=== PATIENT | female | born 1950 | race African-American/Black ===

== ENCOUNTER 2016-11-21 06:13 | Day surgery (SDC) | payer BC, MEDICARE ==
[2016-11-21] VITALS (10 sets, daily range): BP systolic 108–142; BP diastolic 73–82
[~2016-11-21] VITALS: Ht 162.6 cm; Wt 66.2 kg
[~2016-11-21 06:13] MED LIST: AMLODIPINE-BEN1 EAC4 ORAL; ASPIR 8181 MG ORAL
[2016-11-21] MEDS ORDERED: BSS 500ml btl ONE (07:01)
[2016-11-21] MEDS ORDERED: Lidocaine 1% MPF 10mg/ml 5ml ONE (07:01)
[2016-11-21] MEDS ORDERED: Dexamethasone 4mg/ml vial ONE (07:02)
[2016-11-21] MEDS ORDERED: Povidone-Iodine 5% opth solution ONE (07:02)
[2016-11-21] MEDS ORDERED: EPINEPHrine 1mg/1ml Amp ONE (07:02)
[2016-11-21] MEDS ORDERED: Maxitrol Opth Oint 3.5gm ONE (07:02)
[2016-11-21] MEDS ORDERED: Sodium Hyaluronate 14 mg/ml 0.85ml ONE (07:02)
[2016-11-21] MEDS ORDERED: BSS 15ml BTL ONE (07:02)
[2016-11-21] MEDS ORDERED: Ciprofloxacin Opth Soln ONE (07:03)
[2016-11-21] MEDS ORDERED: Akten 3.5% 1ml Btl ONE (07:03)
[2016-11-21] MEDS ORDERED: Cyclopentolate 1% Opth Sol ONE (07:03)
[2016-11-21] MEDS ORDERED: Phenylephrine 2.5% Op Soln ONE (07:03)
[2016-11-21] MEDS ORDERED: Ketorolac Tromethamine Opth Soln ONE (07:03)
[2016-11-21] MEDS: Ketorolac Tromethamine Opth Soln LEFT EYE SCH ×4 (07:05→07:28)
[2016-11-21] MEDS: Cyclopentolate 1% Opth Sol LEFT EYE SCH ×4 (07:05→07:28)
[2016-11-21] MEDS: Phenylephrine 2.5% Op Soln LEFT EYE SCH ×4 (07:05→07:28)
[2016-11-21] MEDS: Ciprofloxacin Opth Soln LEFT EYE SCH ×4 (07:06→07:28)
[2016-11-21] MEDS: Akten 3.5% 1ml Btl LEFT EYE SCH ×4 (07:06→07:28)
--- NOTE | 2016-11-21 07:23 | Pre-Procedure Note/Attestation ---
Pre-Procedure Note/Attestation Complete Prior to Procedure Planned Procedure: left Procedure Narrative: Cataract extraction with intraocular lens Indications for Procedure Pre-Operative Diagnosis: Cataract Attestation I attest that I discussed the nature of the procedure; its benefits; risks and complications; and alternatives (and the risks and benefits of such alternatives ), prior to the procedure, with the patient (or the patient's legal technology sales representative). I attest that, if there was a reasonable possibility of needing a blood transfusion, the patient (or the patient's legal technology sales representative) was given the [facility] standardized written summary, pursuant to the Ulices Margareth Blood Safety Act ([place] Health and Safety Code # 1645, as amended). I attest that I re-evaluated the patient just prior to the surgery and that there has been no change in the patient's H&P, except as documented below: LUIS SWEET Nov 21, 2016 07:23
[2016-11-21] MEDS ORDERED: Propofol 200mg/20ml IV ONE (08:30)
[2016-11-21] MEDS ORDERED: LR 1000ml ONE (08:30)
[2016-11-21] MEDS ORDERED: Sterile Water Irrig 1000ml IRRIG ONE (08:30)
[2016-11-21] MEDS ORDERED: NS Irrig 1000ml ONE (08:30)
[2016-11-21] MEDS ORDERED: Midazolam 2mg/2ml Inj ONE (08:30)
[2016-11-21] MEDS ORDERED: fentaNYL 100 mcg/2 mL IV ONE (08:30)
--- NOTE | 2016-11-21 08:56 | Anethesia Preoperative Eval ---
Anesthesia Pre-op PMH/ROS General Date of Evaluation: Nov 21, 2016 Time of Evaluation: 08:25 Anesthesiologist: Kalpana ASA Score: ASA 2 Mallampati Score Class I : Soft palate, uvula, fauces, pillars visible Class II: Soft palate, uvula, fauces visible Class III: Soft palate, base of uvula visible Class IV: Only hard plate visible Mallampati Classification: Class II Surgeon: Shoshana Diagnosis: L eye cataract Surgical Procedure: L eye cataract extraction Anesthesia History: none Family History: no anesthesia problems Allergies: Coded Allergies: PENICILLINS (Verified Allergy, Intermediate, rash, 11/18/16) Past Medical History Cardiovascular: Reports: HTN - mild, Denies: CAD, VT, valve dz, arrhythmia, other Pulmonary: Reports: COPD, Denies: asthma, ADELITA, other Gastrointestinal/Genitourinary: Reports: GERD, Denies: CRI, ESRD, other Neurologic/Psychiatric: Denies: dementia, CVA, depression/anxiety, TIA, other Endocrine: Denies: DM, hypothyroidism, steroids, other HEENT: Denies: cataract (L), cataract (R), glaucoma, ONONDAGA (L), ONONDAGA (R), other Hematology/Immune: Denies: anemia, DVT, bleeding disorder, other Musculoskeletal/Integumentary: Denies: OA, RA, DJD, DDD, edema, other PMH Narrative: as above PSxH Narrative: Appendectomy, Anesthesia Pre-op Phys. Exam Physician Exam Last Vital Signs Date Time Temp Pulse Resp B/P (MAP) Pulse Ox O2 Delivery O2 Flow Rate FiO2 11/21/16 07:20 98.0 77 19 108/73 97 Room Air Constitutional: NAD Neurologic: CN 2-12 intact Cardiovascular: RRR, no M/R/G Respiratory: CTA Gastrointestinal: S/NT/ND Airway Exam Mallampati Score: Class II MO: full Neck: stiff ROM: limited Teeth: missing Anesthesia Pre-op A/P Labs see chart Studies Pre-op Studies: EKG - NSR Risk Assessment & Plan Assessment: ASA 2 Plan: MAC Status Change Before Surgery: No Pre-Antibiotics Drug: none KRISH PATRICIO M.D. Nov 21, 2016 08:56
[2016-11-21] MEDS ORDERED: LR 1000ml 1,000 ML IVLG SCH (08:57)
[2016-11-21] MEDS ORDERED: fentaNYL 100 mcg/2 mL IV PRN (09:00)
[2016-11-21] MEDS ORDERED: DiphenhydrAMINE 50mg/ml Inj IVP PRN (09:00)
[2016-11-21] MEDS ORDERED: Tetracaine 0.5% Opth Soln ONE (09:07)
--- NOTE | 2016-11-21 09:30 | Operative Note - PDOC ---
Operative Note Operative Note Date of Operation/Procedure: Nov 21, 2016 Chief Complaint: Poor vision, left eye Pre-op Diagnosis: Cataract, left eye Procedure: Cataract extraction with intraocular lens, left eye Post-op Diagnosis: Cataract, left eye Post-op Diagnosis: same as pre-op Surgeon: Shsohana Distribution A Class Lineman: None Additional Surgeons: None Anesthesiologist: Kalpana Anesthesia: MAC Specimen: none Complications: none Condition: stable Estimated Blood Loss: none Drains: none Implant(s) used?: Yes Indications for Procedure Poor vision, left eye Description of Procedure See dictated report LUIS SWEET Nov 21, 2016 09:30
--- NOTE | 2016-11-21 10:42 | Immediate Post-Op Evaluation ---
Immediate Post-Op Evalulation Immediate Post-Op Evalulation Procedure: L eye cataract extraction with IOL Date of Evaluation: Nov 21, 2016 Time of Evaluation: 09:26 IV Fluids: 300 Blood Products: none Estimated Blood Loss: none Urinary Output: none Blood Pressure Systolic: 118 Blood Pressure Diastolic: 62 Pulse Rate: 74 Respiratory Rate: 20 O2 Sat by Pulse Oximetry: 99 Temperature (Fahrenheit): 97.4 Pain Score (1-10): 1 Nausea: No Vomiting: No Complications none Patient Status: awake, patent, none Hydration Status: adequate KRISH PATRICIO M.D. Nov 21, 2016 10:42
--- NOTE | 2016-11-21 11:20 | 48 Hour Post Anesthesia Eval ---
Post Anesthesia Evaluation Procedure: L eye cataract extraction with IOL Date of Evaluation: Nov 21, 2016 Time of Evaluation: 11:18 Blood Pressure Systolic: 142 0: 78 Pulse Rate: 68 Respiratory Rate: 20 Temperature (Fahrenheit): 97.6 O2 Sat by Pulse Oximetry: 98 Airway: patent Nausea: No Vomiting: No Pain Intensity: 2 Hydration Status: adequate Cardiopulmonary Status: stable Mental Status/LOC: patient returned to baseline Follow-up Care/Observations: n/a Post-Anesthesia Complications: none Follow-up care needed: ready to discharge KRISH PATRICIO M.D. Nov 21, 2016 11:19
--- NOTE | 2016-11-21 21:15 | Operative Note - Dictated ---
DATE OF OPERATION: 11/21/2016 SURGEON: Arian Anna M.D. SENIOR CYBER INTELLIGENCE ANALYST: None. ANESTHESIA: MAC. ANESTHESIOLOGIST: Davion Acuna M.D. 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 PRINCIPAL PROCEDURE: Phacoemulsification with primary implantation of posterior chamber intraocular lens, left eye. DESCRIPTION OF PROCEDURE: The patient was evaluated in my office complaining of decreasing vision in her left eye. The visual acuity had diminished to 2200 and she had become extremely myopic with both eyes previously been similar. She was found to have dense nuclear and posterior subcapsular cataract. After discussing the risks, benefits, and alternatives, informed consent was obtained to proceed with cataract extraction in the left eye. The patient was therefore brought to the [facility] outpatient surgery unit where the left pupil was dilated and an intravenous line was started. She was brought into the operating room where ocular anesthesia was obtained with topical drops supplemented with intravenous sedation. The left eye was then prepped and draped in usual fashion for intraocular surgery. A clear cornea temporal incision was made in the anterior chamber filled with lidocaine and viscoelastic. Continuous tear capsulotomy was carefully done. Hydrodissection was utilized to facilitate phacoemulsification. A two-handed phacoemulsification technique was used to fracture a very dense nucleus into quadrants and the segments removed in sequence. Irrigation/aspiration hand piece was then used to remove all residual lens cortex and guyanese the posterior capsule. Viscoelastic was introduced. An intraocular lens from [employer], model ZCB00 with a power of 17.5 diopters was folded into the lens insertion cartridge, injected into the posterior chamber of the eye, and positioned within the capsular bag. The viscoelastic was removed. The wound was adjusted and made watertight without sutures. The intraocular pressure was adjusted to normal. One drop of 10% Betadine, one drop of prednisolone acetate, and one drop of ciprofloxacin were placed on the eye. The eye was covered in an eye shield. This completed the procedure. All sponge and needle counts were correct. The patient was taken to the [facility] in good condition having tolerated the procedure well. Arian Anna M.D. DR: Alicia JOB#: [id number] CC: Eduardo Anderson M.D.; Fax#: [phone] [facility]
== END 2016-11-21 11:15 | disposition home or self-care (01) ==
LOC: SUR 06:13
DX: H25.812 Combined forms of age-related cataract, left eye (principal); I10 Essential (primary) hypertension; J44.9 Chronic obstructive pulmonary disease, unspecified; K21.9 Gastro-esophageal reflux disease without esophagitis; Z90.89 Acquired absence of other organs; Z88.0 Allergy status to penicillin
CPT/HCPCS: 66984; J0171; J1100; J2250; J2704; J3010; J3370; J7120; V2632; 94003; 94150

== ENCOUNTER 2018-11-15 14:01 | Outpatient (CLI) | payer BC, MEDICARE ==
[~2018-11-15] VITALS: Ht 162.6 cm; Wt 68.9 kg
[2018-11-15 15:36] VITALS: BP 109/64
[2018-11-15] MEDS ORDERED: AMLODIPINE BESYL5 MG ORAL (15:36)
[2018-11-15] MEDS ORDERED: AMBIEN5 MG ORAL (15:36)
--- NOTE | 2018-11-15 17:15 | Consultation ---
DATE OF CONSULTATION: 11/15/2018 CHIEF COMPLAINT: Referral for screening colonoscopy. PAST MEDICAL HISTORY: Hypertension. PAST SURGICAL HISTORY: Appendectomy, back surgery, . MEDICATIONS: Please see medication reconciliation list. FAMILY HISTORY: Mother had coronary artery disease. SOCIAL HISTORY: The patient denies any alcohol. She used to smoke, but she quit many years ago. ALLERGIES: To penicillin. REVIEW OF SYSTEMS: A 10-point review of systems was performed and pertinent positives in HPI. PHYSICAL EXAMINATION: GENERAL: female. VITAL SIGNS: Temperature 98, blood pressure , pulse 92, respirations 20. HEENT: Normocephalic and atraumatic. Sclerae anicteric. NECK: Supple. No evidence of obvious lymphadenopathy. CARDIOVASCULAR: Regular rate and rhythm. Plus S1 and S2. No obvious murmur. LUNGS: Clear to auscultation bilaterally. ABDOMEN: Positive bowel sounds. Soft and nontender. No rebound. No guarding. No peritoneal sign. EXTREMITIES: No cyanosis. No clubbing. No edema. ASSESSMENT AND PLAN: The patient is a 68-year-old female was referred to us for screening colonoscopy. The patient was given the prep and instruction for colonoscopy. We will schedule her when authorization is obtained. Franklin Steward M.D. DR: Jorge JOB#: [id number] CC:
== END 2018-11-15 16:01 | disposition home or self-care (01) ==
LOC: PAN 14:01
DX: Z12.11 Encounter for screening for malignant neoplasm of colon (principal); I10 Essential (primary) hypertension; Z90.89 Acquired absence of other organs; Z88.0 Allergy status to penicillin
CPT/HCPCS: 99202

== ENCOUNTER 2019-01-14 07:07 | Day surgery (SDC) | payer BC, MEDICARE ==
[~2019-01-14] VITALS: Ht 163.8 cm; Wt 66.2 kg
[2019-01-14] VITALS (8 sets, daily range): BP systolic 119–144; BP diastolic 70–82
[~2019-01-14 07:07] MED LIST changes: +AMBIEN5 MG ORAL; +AMLODIPINE BESYL5 MG ORAL; +LR 1000ml 1,000 ML IVLG SCH
[2019-01-14] MEDS ORDERED: Lidocaine 1% MPF 10mg/ml 5ml ONE (09:00)
[2019-01-14] MEDS ORDERED: LR 1000ml ONE (09:00)
[2019-01-14] MEDS ORDERED: Propofol 200mg/20ml IV ONE (09:00)
[2019-01-14] MEDS ORDERED: LR 1000ml 1,000 ML IVLG SCH (09:18)
--- NOTE | 2019-01-14 09:25 | Anethesia Preoperative Eval ---
Anesthesia Pre-op PMH/ROS General Date of Evaluation: Jan 14, 2019 Time of Evaluation: 09:21 Anesthesiologist: jd ASA Score: ASA 4 Mallampati Score Class I : Soft palate, uvula, fauces, pillars visible Class II: Soft palate, uvula, fauces visible Class III: Soft palate, base of uvula visible Class IV: Only hard plate visible Mallampati Classification: Class II Surgeon: levi Diagnosis: colon screening Surgical Procedure: colonoscopy Anesthesia History: none Social History: smoking - former smoker Family History: no anesthesia problems Allergies: Coded Allergies: PENICILLINS (Verified Allergy, Intermediate, rash, 11/18/16) Medications: see eMAR Patient NPO?: Yes Past Medical History Cardiovascular: Reports: HTN, other - mvp HEENT: Reports: cataract (L), cataract (R) Musculoskeletal/Integumentary: Reports: OA PSxH Narrative: , appendectomy, Anesthesia Pre-op Phys. Exam Physician Exam Last Vital Signs Date Time Temp Pulse Resp B/P (MAP) Pulse Ox O2 Delivery O2 Flow Rate FiO2 01/14/19 07:42 Room Air 01/14/19 07:37 97.5 83 18 132/73 98 Constitutional: NAD Neurologic: CN 2-12 intact Cardiovascular: RRR Respiratory: CTA Gastrointestinal: S/NT/ND Airway Exam Mallampati Score: Class II MO: limited Neck: flexible TMD: 2fb ROM: limited Dentures: upper, lower Anesthesia Pre-op A/P Risk Assessment & Plan Assessment: asa4 Plan: mac Status Change Before Surgery: No Pre-Antibiotics Drug: Amisha Mendoza MD Jan 14, 2019 09:25
[2019-01-14] MEDS ORDERED: fentaNYL 100 mcg/2 mL IV PRN (09:30)
[2019-01-14] MEDS ORDERED: Midazolam 2mg/2ml Inj IVP PRN (09:30)
[2019-01-14] MEDS ORDERED: DiphenhydrAMINE 50mg/ml Inj IVP PRN (09:30)
[2019-01-14] MEDS ORDERED: Atropine Inj 1mg/10ml Syr IV PRN (09:30)
--- NOTE | 2019-01-14 09:31 | Pre-Procedure Note/Attestation ---
Pre-Procedure Note/Attestation Complete Prior to Procedure Planned Procedure: not applicable Procedure Narrative: colonoscopy Indications for Procedure Pre-Operative Diagnosis: screening Attestation I attest that I discussed the nature of the procedure; its benefits; risks and complications; and alternatives (and the risks and benefits of such alternatives ), prior to the procedure, with the patient (or the patient's legal public relations representative). I attest that, if there was a reasonable possibility of needing a blood transfusion, the patient (or the patient's legal public relations representative) was given the [facility] standardized written summary, pursuant to the Ulices Bejou Blood Safety Act ([place] Health and Safety Code # 1645, as amended). I attest that I re-evaluated the patient just prior to the surgery and that there has been no change in the patient's H&P, except as documented below: Franklin Steward MD Jan 14, 2019 09:31
--- NOTE | 2019-01-14 09:31 | Short Stay Surgery H&P ---
History of Present Illness History of Present Illness Chief Complaint see recent consult note HPI Shannon Bello is a 68 year old female who was admitted on for Screening Patient History Allergies: Coded Allergies: PENICILLINS (Verified Allergy, Intermediate, rash, 11/18/16) Medication History Scheduled Amlodipine Besylate* (Amlodipine Besylate*), 5 MG ORAL DAILY, (Reported) Scheduled PRN Zolpidem Tartrate* (Ambien*), 5 MG ORAL BEDTIME PRN for Insomnia, (Reported) Physical Exam Vital Signs Last Vital Signs Date Time Temp Pulse Resp B/P (MAP) Pulse Ox O2 Delivery O2 Flow Rate FiO2 01/14/19 07:42 Room Air 01/14/19 07:37 97.5 83 18 132/73 98 Plan Attestation Are the patient's medical conditions optimized for surgery? Franklin Steward MD Jan 14, 2019 09:31
--- NOTE | 2019-01-14 09:58 | Endoscopy Procedure Note ---
Endoscopy Procedure Note General Indication for Procedure: screening Procedures Performed: colonoscopy Operative Findings/Diagnosis: hemorrhoids Specimen: none Pt Tolerated Procedure Well: Yes Estimated Blood Loss: none Anesthesia Anesthesiologist: amber Anesthesia: MAC Inserted Devices Implant(s) used?: No Quality Quality of Bowel Preparation: Fair Did scope reach the cecum?: Yes Was there any complications?: No GI Core Measures 50 yrs or older w/o bx or poly: No 10yrs. F/U recommended: Yes If not recommended, why?: Above average risk 18 years or older w/prev. colo: No Franklin Steward MD Jan 14, 2019 09:58
--- NOTE | 2019-01-14 10:09 | Immediate Post-Op Evaluation ---
Immediate Post-Op Evalulation Immediate Post-Op Evalulation Procedure: colonoscopy w/bx Date of Evaluation: Jan 14, 2019 Time of Evaluation: 10:08 IV Fluids: 500ml lr Blood Products: none Estimated Blood Loss: negligible Blood Pressure Systolic: 119 Blood Pressure Diastolic: 76 Pulse Rate: 87 Respiratory Rate: 18 O2 Sat by Pulse Oximetry: 100 Temperature (Fahrenheit): 97.9 Pain Score (1-10): 0 Nausea: No Vomiting: No Complications none Patient Status: awake, reacts, patent Hydration Status: adequate Drug: Amisha Mendoza MD Jan 14, 2019 10:09
--- NOTE | 2019-01-14 10:10 | 48 Hour Post Anesthesia Eval ---
Post Anesthesia Evaluation Procedure: colonoscopy w/bx Date of Evaluation: Jan 14, 2019 Time of Evaluation: 10:10 Blood Pressure Systolic: 121 0: 78 Pulse Rate: 81 Respiratory Rate: 18 Temperature (Fahrenheit): 97.3 O2 Sat by Pulse Oximetry: 100 Airway: patent Nausea: No Vomiting: No Pain Intensity: 0 Hydration Status: adequate Cardiopulmonary Status: stable Mental Status/LOC: patient returned to baseline Post-Anesthesia Complications: none Follow-up care needed: N/A Amisha Santiago MD Jan 14, 2019 10:10
--- NOTE | 2019-01-14 18:45 | Procedure Note ---
DATE OF PROCEDURE: 01/14/2019 SURGEON: Franklin Steward M.D. PROCEDURE: Colonoscopy. ANESTHESIA: Per Dr. Edwards. INSTRUMENT: Olympus adult flexible colonoscope. INDICATION: Screening colonoscopy. REASON FOR PROCEDURE: The procedure, risks, benefits, and possible consequences, including hemorrhage, aspiration, perforation and infection, and alternative treatments, were explained to the patient/legal guardian by Dr. Franklin Steward and the patient/legal guardian understood and accepted these risks. PROCEDURE IN DETAIL: After informed consent was obtained and the patient was adequately sedated, first rectal exam was performed which was positive for internal hemorrhoids. Then, the scope was advanced from the rectum into the cecum documented by appendix orifice, ileocecal valve, and right upper quadrant palpation. Quality of prep was fair. I would say about 10% to 15% of the colonic mucosa was not examined given this prep. There was some yellowish solid material. We tried to clean and wash, but every time we tried to do, the scope will be clogged up and that made very difficult. Overall, I would say about 10% to 15% of the colonic mucosa was not examined given this prep. The patient had no obvious polyp, mass, or any pathology seen. Retroflexion of rectum showed evidence of medium-sized internal hemorrhoids. SUMMARY OF FINDINGS: 1. Fair colonic prep. See above for details. 2. Internal hemorrhoids. RECOMMENDATIONS: Given this prep, we will recommend repeat colonoscopy in three years. I want to thank Dr. Anderson for this kind referral. Franklin Steward M.D. DR: DOMENICO JOB#: [id number] CC: Dr. Anderson
== END 2019-01-14 11:25 | disposition home or self-care (01) ==
LOC: GAS 07:07
DX: Z12.11 Encounter for screening for malignant neoplasm of colon (principal); K64.8 Other hemorrhoids; Z88.0 Allergy status to penicillin; I10 Essential (primary) hypertension; M19.90 Unspecified osteoarthritis, unspecified site; Z90.89 Acquired absence of other organs
CPT/HCPCS: 45378; 93005; J2704; 94003; 94150

== ENCOUNTER → 2020-02-27 | Day surgery (SDC) | payer BC, MEDICARE ==
[~2020-02-27] VITALS: Ht 163.8 cm; Wt 63.5 kg
[2020-02-27] VITALS (7 sets, daily range): BP systolic 120–144; BP diastolic 65–86
[~2020-02-27] MED LIST changes: +BSS 15ml BTL ONE; +BSS 500ml btl ONE; +Carbachol 0.01% Op Soln 1.5ml vial ONE; +Ciprofloxacin Opth Soln 5ml ONE; +Diclofenac Sod 0.1% Op Soln ONE; +DiphenhydrAMINE 50mg/ml Inj IVP PRN; +DiphenhydrAMINE 50mg/ml Inj ONE; +EPINEPHrine 1mg/1ml Amp ONE; +LR 1000ml ONE; +Labetalol 5mg/ml 20ml vial IV PRN; +Lidocaine 1% MPF 10mg/ml 5ml ONE; +Lidocaine 1%/ 10mg/ml/EPI 0.01mg/ml 20ml INJ ONE; +Lidocaine 4% Amp 5ml ONE; +Maxitrol Opth Oint 3.5gm ONE; +Midazolam 2mg/2ml Inj ONE; +NS Irrig 1000ml ONE; +Povidone-Iodine 5% opth solution ONE; +Sodium Hyaluronate 10 mg/ml 0.85ml ONE; +Sterile Water Irrig 1000ml IRRIG ONE; +Tetracaine 0.5% Opth 4ml Soln ONE; +fentaNYL 100 mcg/2 mL IV ONE; +prednisoLONE acetate 1% Opth Susp 1ml ONE
--- NOTE | 2020-02-27 07:32 | Anethesia Preoperative Eval ---
Anesthesia Pre-op PMH/ROS General Date of Evaluation: Feb 27, 2020 Anesthesiologist: Dimitri ASA Score: ASA 2 Mallampati Score Class I : Soft palate, uvula, fauces, pillars visible Class II: Soft palate, uvula, fauces visible Class III: Soft palate, base of uvula visible Class IV: Only hard plate visible Mallampati Classification: Class II Surgeon: Shoshana Diagnosis: right cataract Surgical Procedure: right cataract extraction with IOL Anesthesia History: none Social History: smoking Family History: no anesthesia problems Allergies: Coded Allergies: PENICILLINS (Verified Allergy, Intermediate, rash, 02/27/20) Medications: see eMAR Patient NPO?: Yes NPO Date: Feb 27, 2020 NPO Time: 00:00 Past Medical History Cardiovascular: Reports: HTN; Denies: CAD, MO, valve dz, arrhythmia, other Pulmonary: Denies: asthma, COPD, ADELITA, other Gastrointestinal/Genitourinary: Reports: other - uterine fibroids; Denies: GERD, CRI, ESRD Neurologic/Psychiatric: Denies: dementia, CVA, depression/anxiety, TIA, other Endocrine: Denies: DM, hypothyroidism, steroids, other HEENT: Reports: cataract (R); Denies: cataract (L), glaucoma, [place] (L), C[place]WELL (R), other Hematology/Immune: Denies: anemia, DVT, bleeding disorder, other Musculoskeletal/Integumentary: Reports: OA; Denies: RA, DJD, DDD, edema, other PSxH Narrative: left cataract, appy, c/s x2 Anesthesia Pre-op Phys. Exam Physician Exam see chart Constitutional: NAD Cardiovascular: RRR Respiratory: CTA Airway Exam Mallampati Score: Class II MO: full ROM: full Dentures: upper, lower Anesthesia Pre-op A/P Labs see chart Studies Pre-op Studies: EKG - sr Risk Assessment & Plan Assessment: ASA II Plan: MAC Status Change Before Surgery: No Pre-Antibiotics Drug: N/A Cyn Mosley MD Feb 27, 2020 07:32
[2020-02-27] MEDS: Akten 3.5% 1ml Btl RIGHT EYE SCH ×4 (07:33→07:56)
[2020-02-27] MEDS: Phenylephrine 10% Opth Soln 5ml RIGHT EYE SCH ×4 (07:33→07:55)
[2020-02-27] MEDS: Diclofenac Sod 0.1% Op Soln RIGHT EYE SCH ×4 (07:33→07:56)
[2020-02-27] MEDS: Ciprofloxacin Opth Soln 5ml RIGHT EYE SCH ×4 (07:33→07:55)
[2020-02-27] MEDS: Cyclopentolate 2% Opth Sol RIGHT EYE SCH ×3 (07:34→07:49)
--- NOTE | 2020-02-27 09:24 | Pre-Procedure Note/Attestation ---
Pre-Procedure Note/Attestation Complete Prior to Procedure Planned Procedure: right Procedure Narrative: Cataract extraction with intraocular lens implant Indications for Procedure Pre-Operative Diagnosis: Cataract Attestation I attest that I discussed the nature of the procedure; its benefits; risks and complications; and alternatives (and the risks and benefits of such alternatives), prior to the procedure, with the patient (or the patient's legal premium representative). I attest that, if there was a reasonable possibility of needing a blood transfusion, the patient (or the patient's legal premium representative) was given the [facility] Services standardized written summary, pursuant to the Ulices Margareth Blood Safety Act ([place] Health and Safety Code # 1645, as amended). I attest that I re-evaluated the patient just prior to the surgery and that there has been no change in the patient's H&P, except as documented below: Arian Anna MD Feb 27, 2020 09:24
--- NOTE | 2020-02-27 10:22 | Immediate Post-Op Evaluation ---
Immediate Post-Op Evalulation Immediate Post-Op Evalulation Procedure: Right cataract extraction with IOL Date of Evaluation: Feb 27, 2020 Time of Evaluation: 10:24 IV Fluids: 100 Blood Products: 0 Estimated Blood Loss: 0 Urinary Output: 0 Blood Pressure Systolic: 141 Blood Pressure Diastolic: 81 Pulse Rate: 78 Respiratory Rate: 16 O2 Sat by Pulse Oximetry: 97 Temperature (Fahrenheit): 98.2 Pain Score (1-10): 0 Nausea: No Vomiting: No Complications 0 Patient Status: awake, reacts, patent, none Hydration Status: adequate Drug: N/A Cyn Mosley MD Feb 27, 2020 10:22
--- NOTE | 2020-02-27 10:23 | 48 Hour Post Anesthesia Eval ---
Post Anesthesia Evaluation Procedure: Right cataract extraction with IOL Date of Evaluation: Feb 27, 2020 Airway: patent Nausea: No Vomiting: No Pain Intensity: 0 Hydration Status: adequate Cardiopulmonary Status: at baseline Mental Status/LOC: patient returned to baseline Post-Anesthesia Complications: 0 Follow-up care needed: ready to discharge Cyn Mosley MD Feb 27, 2020 10:23
--- NOTE | 2020-02-27 10:37 | Operative Note - PDOC ---
Operative Note Operative Note Date of Operation/Procedure: Feb 27, 2020 Chief Complaint: Poor vision Pre-op Diagnosis: Cataract Procedure: Cataract extraction with intraocular lens implantation Post-op Diagnosis: Same Post-op Diagnosis: same as pre-op Surgeon: Arian Anna Bracelet Maker Novelty: None Additional Surgeons: None Anesthesiologist: Norma Mosley Anesthesia: MAC Specimen: none Complications: none Condition: stable Estimated Blood Loss: none Drains: none Implant(s) used?: Yes Indications for Procedure Poor vision Description of Procedure See dictated report Arian Anna MD Feb 27, 2020 10:37
--- NOTE | 2020-02-27 12:30 | Operative Note - Dictated ---
DATE OF OPERATION: 02/27/2020 SURGEON: Arian Anna MD ASSISTED LIVING ASSOCIATE: None. ANESTHESIA: MAC. ANESTHESIOLOGIST: Dr. Mosley. PREOPERATIVE DIAGNOSES: 1. 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 2. Pseudophakia, left eye. POSTOPERATIVE DIAGNOSES: 1. 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 2. Pseudophakia, left eye. PRINCIPAL PROCEDURE: Phacoemulsification with primary implantation of posterior-chamber intraocular lens, right eye. DESCRIPTION OF PROCEDURE: The patient has been evaluated in my office complaining of gradually decreasing vision associated with increasing cataract. She underwent successful cataract extraction in her left eye approximately 3 years ago. The visual acuity has been excellent. The right eye has gradually gotten blurrier and more myopic associated with increasing cataract. After discussing the risks, benefits, and alternatives, informed consent was obtained to proceed with cataract extraction in the right eye. The patient was therefore brought to the [facility] Surgery Unit where the right pupil was dilated and an intravenous line was started. She was then brought into the operating room where MAC anesthesia was obtained with topical drops supplemented with intravenous sedation. The right eye was prepped and draped in usual fashion for intraocular surgery. A clear corneal temporal incision was made in the anterior chamber filled with Shugarcaine and viscoelastic. A continuous tear capsulotomy was accomplished. Hydrodissection was utilized to facilitate phacoemulsification. A two-handed phacoemulsification technique was used to fracture the lens nucleus into quadrants and the segments removed in sequence. Irrigation/aspiration handpiece was used to remove residual lens cortex and macanese the posterior capsule. Viscoelastic was introduced. An intraocular lens from [employer], model PCB00, with power of 18.5 diopters, was folded into the lens insertion cartridge, injected into the posterior chamber of the eye, and positioned within the capsular bag. The viscoelastic was removed. The wound was adjusted and made watertight without sutures. The intraocular pressure was adjusted to normal. One drop of 10% Betadine, one drop of prednisolone acetate, and one drop of Vigamox were placed on the eye. The eye was covered with an eye shield. This completed the procedure. All sponge and needle counts were correct. The patient was taken to the [facility] in good condition having tolerated the procedure well. Arian Anna M.D. DR: Juan JOB#: [id number] CC:
== END | disposition home or self-care (01) ==
LOC: SUR 07:01
DX: H25.811 Combined forms of age-related cataract, right eye (principal); Z96.1 Presence of intraocular lens; I10 Essential (primary) hypertension; M19.90 Unspecified osteoarthritis, unspecified site; Z90.89 Acquired absence of other organs
CPT/HCPCS: 66984; 94003; J0171; J1100; J1200; J2250; J3010; J3370; J7120; U0002; V2632; 94150